=== PATIENT | male | born 1970 | race Caucasian/White ===

== ENCOUNTER 2020-04-27 15:28 | Outpatient (REF) | payer OTHER, SELFPAY ==
--- NOTE | ~2020-04-27 | MR_ITS ---
EXAMINATION: MR BRAIN WITHOUT AND WITH CONTRAST CLINICAL INFORMATION: Acoustic neuroma. Meniere's disease. COMPARISON: None available. TECHNIQUE: Multiplanar, multisequence imaging of the brain was performed before and after the intravenous administration of 10 mL of Gadavist. FINDINGS: The inner ear structures including the cochlea, vestibules, and semicircular canals exhibit preserved CSF signal intensity with no pathologic enhancement. The vestibular aqueducts are not enlarged. Cranial nerves VII and VIII complexes are normal in morphology. No enhancing cerebellopontine angle/retrocochlear lesion. There is no intracranial mass or abnormal intracranial enhancement. There is no acute infarction. There is no intracranial hemorrhage or extra axial collection. The ventricles, sulci, and basilar cisterns are normal in size and configuration. A few mild nonspecific foci of T2 hyperintensity are seen in the bilateral cerebral white matter. The flow voids of the major intracranial arteries appear intact. The bones and extracranial soft tissues are within normal limits. MR/MR head/brain wo/w con IMPRESSION: No vestibular schwannoma or retrocochlear lesion identified.
[2020-04-27 16:07] LABS: Blood Urea Nitrogen 21 mg/dL (9-16); Estimated Glomerular Filt Rate > 60
== END 2020-04-27 15:29 | disposition home or self-care (01) ==
LOC: HO.MRI 15:28
PROVIDERS: Visit Provider Otolaryngology
DX: D33.3 Benign neoplasm of cranial nerves (principal); H81.01 Meniere's disease, right ear
CPT/HCPCS: 36415; 70553; 82565; 84520; A9585